=== PATIENT | female | born 1980 | race African-American/Black ===

== ENCOUNTER 2018-02-25 13:10 | Emergency (ER) | payer SELFPAY ==
[~2018-02-25] VITALS: Ht 177.8 cm; Wt 107.5 kg
--- NOTE | 2018-02-25 13:47 | Emergency Room Report ---
History of Present Illness General Chief Complaint: Upper Respiratory Illness Present Illness HPI 37-year-old female presents emergency department complaining of 7 out of 10 in severity painful cough 2 weeks. Patient denies production of sputum she denies fevers she reports intermittent chills she denies ill contacts or recent travel. Patient denies being a current smoker she reports she quit smoking 5 years ago. Patient denies history of asthma or COPD. OTC cough medications have been ineffective. Denies sore throat, ear pain, high fevers, lethargy, neck pain/stiffness, irritability, photophobia dehydration, N/V/D. Denies Cp, Palpitations, LOC, AMS, seizures, paresthesias, or changes in Hearing or vision , no Sudden severe LEI. Denies hx of smoking, asthma or COPD. Allergies: Coded Allergies: No Known Allergies (Unverified , 02/25/18) Patient History Past Medical History: see triage record Past Surgical History: none Pertinent Family History: none Social History: Reports: smoking Last Menstrual Period: Feb 2018 Now: No Reviewed Nursing Documentation: PMH: Agreed; PSxH: Agreed Nursing Documentation-PMH Past Medical History: No History, Except For Hx Hypertension: Yes Review of Systems All Other Systems: negative except mentioned in HPI Physical Exam Vital Signs Date Time Temp Pulse Resp B/P (MAP) Pulse Ox O2 Delivery O2 Flow Rate FiO2 02/25/18 13:24 99.1 84 16 136/84 95 Room Air Sp02 EP Interpretation: reviewed, normal General Appearance: no apparent distress, alert, GCS 15, non-toxic Head: normocephalic, atraumatic Eyes: bilateral eye normal inspection, bilateral eye PERRL ENT: hearing grossly normal, normal pharynx, normal voice Neck: full range of motion, no meningismus, no bony tend Respiratory: chest non-tender, lungs clear, no rhonchi, speaking full sentences , wheezing - expiratory wheezes Cardiovascular #1: regular rate, rhythm, no edema, normal capillary refill Musculoskeletal: back normal, gait/station normal, normal range of motion, non- tender Neurologic: alert, oriented x3, responsive, motor strength/tone normal, sensory intact, normal gait, speech normal, grossly normal Psychiatric: judgement/insight normal Skin: normal color, no rash, warm/dry, well hydrated Lymphatic: no adenopathy Medical Decision Making PA Attestation Dr. jaramillo is my supervising Physician whom patient management has been discussed with. Diagnostic Impression: Primary Impression: Bronchitis ER Course 37-year-old female presents emergency department complaining of 7 out of 10 in severity painful cough 2 weeks. Patient denies production of sputum she denies fevers she reports intermittent chills she denies ill contacts or recent travel. Patient denies being a current smoker she reports she quit smoking 5 years ago. Patient denies history of asthma or COPD. OTC cough medications have been ineffective. Denies sore throat, ear pain, high fevers, lethargy, neck pain/stiffness, irritability, photophobia dehydration, N/V/D. Denies Cp, Palpitations, LOC, AMS, seizures, paresthesias, or changes in Hearing or vision , no Sudden severe LEI. Denies hx of smoking, asthma or COPD. Ddx considered but are not limited to URI, pneumonia, PE, strep pharyngitis, meningitis. Vital signs: Pt.is afebrile VS are WNL H&PE are most consistent with bronchitis ORDERS: -CXR: hazy appearance...but no effusion , infliltrate, or atelectasis ED INTERVENTIONS: -Albuterol HHN -Prednisone PO DISCHARGE: At this time pt. is stable for d/c to home. Will provide printed patient care instructions, and any necessary prescriptions. Care plan and follow up instructions have been discussed with the patient prior to discharge. Chest X-Ray Diagnostic Results Chest X-Ray Diagnostic Results : Chest X-Ray Ordered: Yes # of Views/Limited/Complete: 1 View Indication: Chest Pain EP Interpretation: Yes PA Xray: by supervising MD, and agrees with findings. Interpretation: no consolidation, no effusion, no pneumothorax, no acute cardiopulmonary disease Impression: No acute disease Electronically Signed by: Shayna Gracia PA-C Last Vital Signs Date Time Temp Pulse Resp B/P (MAP) Pulse Ox O2 Delivery O2 Flow Rate FiO2 02/25/18 13:33 84 16 Room Air 02/25/18 13:24 99.1 136/84 95 Disposition: HOME, SELF-CARE Condition: Stable Scripts Prednisone* (PREDNISONE*) 20 Mg Tablet 40 MG ORAL DAILY for 5 Days, #10 TAB Prov: Shayna Garcia 02/25/18 Albuterol Sulfate* (ALBUTEROL SULFATE MDI*) 8.5 Gm Hfa.aer.ad 2 PUFF INH Q4H, #1 INH 0 Refills Prov: Shayna Garcia 02/25/18 Benzonatate* (TESSALON PERLE*) 100 Mg Capsule 100 MG ORAL THREE TIMES A DAY for 10 Days, #30 PERLE Prov: Shayna Garcia 02/25/18 Codeine/Promethazine Hcl* (PROMETHAZINE-CODEINE SYRUP*) 118 Ml Syrup 5 ML ORAL Q6H PRN for For Cough, #120 ML 0 Refills Prov: Shayna Garcia 02/25/18 Patient Instructions: Acute Bronchitis Additional Instructions: Take medications as directed. Follow up with a Primary Care Provider in 3-5 days, even if your symptoms have resolved. --Please review list of primary care clinics, if you do not already have a primary care provider Return sooner to ED if new symptoms occur, or current symptoms become worse. Do not drink alcohol, drive, or operate heavy machinery while taking Cough Syrup as this may cause drowsiness. - Please note that this Emergency Department Report was dictated using [employer] ride operator technology software, occasionally this can lead to erroneous entry secondary to interpretation by the dictation equipment. Shayna Garcia Feb 25, 2018 13:47
[2018-02-25 13:58] VITALS: BP 141/79
[2018-02-25] MEDS ORDERED: Albuterol ud Inhalation HHN ONE (14:00)
[2018-02-25] MEDS ORDERED: ALBUTEROL SULF8.5 GM INH (14:44)
[2018-02-25] MEDS ORDERED: PROMETHAZINE-C118 M1 ORAL (14:44)
[2018-02-25] MEDS ORDERED: TESSALON PERLE100 MG ORAL (14:44)
[2018-02-25] MEDS ORDERED: PREDNISONE20 MG ORAL (14:44)
[2018-02-25 14:50] VITALS: BP 141/79
--- NOTE | 2018-02-25 17:36 | Diagnostic Imaging Report ---
Indication: Chest pain Technique: One view of the chest Comparison: none Findings: Inspiration is suboptimal. There is borderline interstitial congestion. No focal airspace consolidation. No effusions Impression: Borderline interstitial congestion. Correlate with clinical findings
[2018-03-01] MEDS ORDERED: ZITHROMAX250 MG ORAL ×2 (13:21→15:52)
== END 2018-02-25 14:45 | disposition home or self-care (01) ==
LOC: EMR 13:59
DX: J40 Bronchitis, not specified as acute or chronic (principal); I10 Essential (primary) hypertension
CPT/HCPCS: 71045; 94640; 99283; J7512

== ENCOUNTER 2018-03-05 16:41 | Emergency (ER) | payer SELFPAY ==
[~2018-03-05] VITALS: Ht 177.8 cm; Wt 111.1 kg
[~2018-03-05 16:41] MED LIST: ALBUTEROL SULF8.5 GM INH; PREDNISONE20 MG ORAL; PROMETHAZINE-C118 M1 ORAL; TESSALON PERLE100 MG ORAL; ZITHROMAX250 MG ORAL
[2018-03-05] MEDS ORDERED: FERROUS FUMARAT89 MG PO (17:15)
[2018-03-05] MEDS ORDERED: Ipratropium 0.02% Inh Soln 2.5ml UD HHN ONE (17:15)
[2018-03-05] MEDS ORDERED: Albuterol ud Inhalation HHN ONE (17:15)
[2018-03-05] MEDS ORDERED: Tylenol #3 tab (300mg/30mg) ORAL ONE (17:15)
[2018-03-05] MEDS ORDERED: AMLODIPINE BESYL5 MG ORAL (17:15)
[2018-03-05 17:28] VITALS: BP 125/65
--- NOTE | 2018-03-05 17:45 | Diagnostic Imaging Report ---
Indication: Shortness of breath Technique: XRAY Chest 1v Comparison: 02/25/2018 Findings: Heart size and mediastinal contours are within normal limits for AP technique. There is no focal consolidation, pneumothorax or pleural effusion. Osseous structures demonstrate no acute abnormality. Impression: No radiographic evidence of acute cardiopulmonary disease.
[2018-03-05 18:26] LABS: BASOPHILS % (AUTO) 1.2 % (0.0-2.0); EOSINOPHILS % (AUTO) 0.8 % (0.0-3.0); HEMATOCRIT 41.8 % (37.0-47.0); HEMOGLOBIN 13.9 G/DL (12.0-16.0); LYMPHOCYTES % (AUTO) 27.9 % (20.0-45.0); MEAN CORPUSCULAR VOLUME 83 FL (80-99); MONOCYTES % (AUTO) 4.7 % (1.0-10.0); NEUTROPHILS % (AUTO) 65.3 % (45.0-75.0); PLATELET COUNT 399 K/UL (150-450); RED BLOOD COUNT 5.01 M/UL (4.20-5.40); RED CELL DISTRIBUTION WIDTH 14.8 % (11.6-14.8)
[2018-03-05 18:30] LABS: APPEARANCE,URINE CLEAR; BILIRUBIN, URINE NEGATIVE (NEGATIVE); GLUCOSE, URINE (UA) NEGATIVE (NEGATIVE); KETONES,URINE NEGATIVE (NEGATIVE); LEUKOCYTE ESTERASE ,URINE NEGATIVE (NEGATIVE); NITRITE,URINE NEGATIVE (NEGATIVE); PH,URINE 6 (4.5-8.0); PROTEIN,URINE NEGATIVE (NEGATIVE); UROBILINOGEN,URINE NORMAL MG/DL (0.0-1.0)
[2018-03-05 18:32] LABS: COLOR,URINE YELLOW
[2018-03-05 18:32] LABS: ANION GAP 9 mmol/L (5-15); BLOOD UREA NITROGEN 15 mg/dL (7-18); CALCIUM 8.7 MG/DL (8.5-10.1); CARBON DIOXIDE 28 MMOL/L (21-32); CHLORIDE 101 MMOL/L (98-107); CREATININE 1.1 MG/DL (0.55-1.30); POTASSIUM 3.9 MMOL/L (3.5-5.1); SODIUM 138 MMOL/L (136-145)
[2018-03-05] MEDS ORDERED: Sodium Chloride 500ML 500 ML IV ONE (18:45)
[2018-03-05 18:47] LABS: ALANINE AMINOTRANSFERASE 21 U/L (12-78); ALBUMIN 3.5 G/DL (3.4-5.0); ALBUMIN/GLOBULIN RATIO 0.8 (1.0-2.7); ALKALINE PHOSPHATASE 83 U/L (46-116); ASPARTATE AMINO TRANSFERASE 14 U/L (15-37); BILIRUBIN,TOTAL 0.3 MG/DL (0.2-1.0); CKMB 0.6 NG/ML (0.0-3.6); CREATINE KINASE 50 U/L (26-308)
[2018-03-05] MEDS ORDERED: PREDNISONE20 MG ORAL (19:19)
[2018-03-05] MEDS ORDERED: TYLENOL EXTRA500 MG ORAL (19:19)
[2018-03-05] MEDS ORDERED: PROMETHAZINE-C118 M1 ORAL (19:19)
[2018-03-05] MEDS ORDERED: ALBUTEROL SULF8.5 GM INH (19:19)
[2018-03-05] MEDS ORDERED: ROBAXIN-750750 MG PO (19:19)
[2018-03-05] MEDS ORDERED: AMOXICILLIN500 MG ORAL (19:23)
[2018-03-05 19:44] VITALS: BP 117/70
[2018-03-05 19:46] VITALS: BP 117/70
--- NOTE | 2018-03-05 23:55 | Emergency Room Report ---
History of Present Illness General Chief Complaint: Chest Pain Source: Patient, Medical Record Present Illness HPI 37-year-old female presents ED for evaluation. Complaining of shortness of breath and chest tightness and cough. Was seen here approximately one week ago for similar symptoms. Was discharged on cough medication and inhaler. Later on added antibiotics after speaking to PA. Patient states cough persists. Also complaining of chest tightness and soreness. 8 out of 10, dull, nonradiating. Cough is dry. Denies fevers or chills. Denies sick contacts or recent travel. Denies smoking. No other aggravating relieving factors. Denies any other associated symptoms Allergies: Coded Allergies: SULFA (SULFONAMIDE ANTIBIOTICS) (Verified Allergy, Unknown, 03/05/18) Patient History Past Medical History: HTN Past Surgical History: none Pertinent Family History: none Social History: Denies: smoking, alcohol use, drug use Last Menstrual Period: Feb 2018 Now: No Immunizations: UTD Reviewed Nursing Documentation: PMH: Agreed; PSxH: Agreed Nursing Documentation-PMH Past Medical History: No History, Except For Hx Hypertension: Yes Review of Systems All Other Systems: negative except mentioned in HPI Physical Exam Vital Signs Date Time Temp Pulse Resp B/P (MAP) Pulse Ox O2 Delivery O2 Flow Rate FiO2 03/05/18 16:50 98.2 118 16 142/82 98 Room Air 03/05/18 17:25 21 Sp02 EP Interpretation: reviewed, normal General Appearance: no apparent distress, alert, GCS 15, non-toxic Head: normocephalic, atraumatic Eyes: bilateral eye normal inspection, bilateral eye PERRL ENT: hearing grossly normal, normal pharynx, no angioedema, normal voice Neck: full range of motion, supple/symm/no masses Respiratory: chest non-tender, lungs clear, normal breath sounds, speaking full sentences Cardiovascular #1: regular rate, rhythm, no edema Cardiovascular #2: 2+ carotid (R), 2+ carotid (L), 2+ radial (R), 2+ radial (L) , 2+ dorsalis pedis (R), 2+ dorsalis pedis (L) Gastrointestinal: normal bowel sounds, non tender, soft, non-distended, no guarding, no rebound Rectal: deferred Genitourinary: normal inspection, no CVA tenderness Musculoskeletal: back normal, gait/station normal, normal range of motion, non- tender Neurologic: alert, oriented x3, responsive, motor strength/tone normal, sensory intact, speech normal Psychiatric: judgement/insight normal, memory normal, mood/affect normal, no suicidal/homicidal ideation Reflexes: 3+ bicep (R), 3+ bicep (L), 3+ tricep (R), 3+ tricep (L), 3+ knee (R) , 3+ knee (L) Skin: normal color, no rash, warm/dry, well hydrated Lymphatic: no adenopathy Medical Decision Making Diagnostic Impression: Primary Impression: Chest wall pain Additional Impression: Bronchitis ER Course Hospital Course 37 yo F presents with chest wall pain, chest tightness, cough Differential diagnoses include: URI, bronchitis, asthma/COPD, pneumonia Clinical course Patient placed on stretcher. Initial history and physical I ordered labs, chest x-ray, pain meds Chest x-ray shows no acute infiltrate on reassessment patient continues to note chest tightness, states she "can't catch her breath" I ordered labs, EKG, IV fluids Labs reviewed-no leukocytosis, hemoglobin/hematocrit stable, electrolytes okay, trop negative, ddimer ok EKG - sinus tachycardia, no acute ischemic changes interpreted by me Discussed findings with patient and family. Symptoms are likely related to chest wall pain due to persistent coughing. Low suspicion for PE or ischemic cardiac event. Safe for discharge or close outpatient follow-up Diagnosis - chest wall pain, bronchitis Stable and discharged home with prescriptions for albuterol, prednisone, tylenol , robaxin, promethazine/codeine. Instructed to followup with PMD. Return to ED if symptoms recur or worsen Labs Test 03/05/18 17:11 03/05/18 18:06 Urine Color Yellow Urine Appearance Clear Urine pH 6 (4.5-8.0) Urine Specific [place] 1.015 (1.005-1.035) Urine Protein Negative (NEGATIVE) Urine Glucose (UA) Negative (NEGATIVE) Urine Ketones Negative (NEGATIVE) Urine Blood 1+ (NEGATIVE) Urine Nitrite Negative (NEGATIVE) Urine Bilirubin Negative (NEGATIVE) Urine Urobilinogen Normal MG/DL (0.0-1.0) Urine Leukocyte Esterase Negative (NEGATIVE) Urine RBC 0-2 /HPF (0 - 2) Urine WBC 0 /HPF (0 - 2) Urine Squamous Epithelial Cells Few /LPF (NONE/OCC) Urine Bacteria Occasional /HPF (NONE) Urine HCG, Qualitative Negative (NEGATIVE) White Blood Count 13.0 K/UL (4.8-10.8) Red Blood Count 5.01 M/UL (4.20-5.40) Hemoglobin 13.9 G/DL (12.0-16.0) Hematocrit 41.8 % (37.0-47.0) Mean Corpuscular Volume 83 FL (80-99) Mean Corpuscular Hemoglobin 27.8 PG (27.0-31.0) Mean Corpuscular Hemoglobin Concent 33.3 G/DL (32.0-36.0) Red Cell Distribution Width 14.8 % (11.6-14.8) Platelet Count 399 K/UL (150-450) Mean Platelet Volume 5.0 FL (6.5-10.1) Neutrophils (%) (Auto) 65.3 % (45.0-75.0) Lymphocytes (%) (Auto) 27.9 % (20.0-45.0) Monocytes (%) (Auto) 4.7 % (1.0-10.0) Eosinophils (%) (Auto) 0.8 % (0.0-3.0) Basophils (%) (Auto) 1.2 % (0.0-2.0) D-Dimer 0.28 mg/L FEU (0.00-0.49) Sodium Level 138 MMOL/L (136-145) Potassium Level 3.9 MMOL/L (3.5-5.1) Chloride Level 101 MMOL/L (98-107) Carbon Dioxide Level 28 MMOL/L (21-32) Anion Gap 9 mmol/L (5-15) Blood Urea Nitrogen 15 mg/dL (7-18) Creatinine 1.1 MG/DL (0.55-1.30) Estimat Glomerular Filtration Rate > 60 mL/min (>60) Glucose Level 178 MG/DL (74-106) Calcium Level 8.7 MG/DL (8.5-10.1) Total Bilirubin 0.3 MG/DL (0.2-1.0) Aspartate Amino Transf (AST/SGOT) 14 U/L (15-37) Alanine Aminotransferase (ALT/SGPT) 21 U/L (12-78) Alkaline Phosphatase 83 U/L (46-116) Total Creatine Kinase 50 U/L (26-308) Creatine Kinase MB 0.6 NG/ML (0.0-3.6) Creatine Kinase MB Relative Index 1.2 Troponin I 0.012 ng/mL (0.000-0.056) Pro-B-Type Natriuretic Peptide 6 pg/mL (0-125) Total Protein 7.7 G/DL (6.4-8.2) Albumin 3.5 G/DL (3.4-5.0) Globulin 4.2 g/dL Albumin/Globulin Ratio 0.8 (1.0-2.7) EKG Diagnostic Results Rate: tachycardiac Rhythm: NSR ST Segments: no acute changes ASA given to the pt in ED: No Rhythm Strip Diag. Results EP Interpretation: yes Rhythm: NSR, no PVC's, no ectopy Chest X-Ray Diagnostic Results Chest X-Ray Diagnostic Results : Chest X-Ray Ordered: Yes # of Views/Limited/Complete: 1 View Indication: Shortness of Breath EP Interpretation: Yes Interpretation: no consolidation, no effusion, no pneumothorax, no acute cardiopulmonary disease Impression: No acute disease Electronically Signed by: Electronically signed by Randy Mei MD Last Vital Signs Date Time Temp Pulse Resp B/P (MAP) Pulse Ox O2 Delivery O2 Flow Rate FiO2 03/05/18 19:46 97.7 94 18 117/70 99 Room Air 21 Status: improved Disposition: HOME, SELF-CARE Condition: Stable Scripts Amoxicillin* (AMOXIL*) 500 Mg Capsule 500 MG ORAL THREE TIMES A DAY, #21 CAP Prov: Randy Mei MD 03/05/18 Albuterol Sulfate* (ALBUTEROL SULFATE MDI*) 8.5 Gm Hfa.aer.ad 2 PUFF INH Q6H, #1 EA 0 Refills Prov: Randy Mei MD 03/05/18 Prednisone* (PREDNISONE*) 20 Mg Tablet 40 MG ORAL DAILY, #10 TAB Prov: Randy Mei MD 03/05/18 Methocarbamol* (ROBAXIN-750*) 750 Mg Tablet 750 MG PO TID, #21 TAB 0 Refills Prov: Randy Mei MD 03/05/18 Acetaminophen* (TYLENOL EXTRA STRENGTH*) 500 Mg Tablet 500 MG ORAL Q8H PRN for Prn Headache/Temp > 101, #30 TAB 0 Refills Prov: Randy Mei MD 03/05/18 Codeine/Promethazine Hcl* (PROMETHAZINE-CODEINE SYRUP*) 118 Ml Syrup 5 ML ORAL Q6H PRN for For Cough, #120 ML 0 Refills Prov: Randy Mei MD 03/05/18 Referrals: NOT CHOSEN IPA/,REFERRING (PCP) [facility] Patient Instructions: Chest Wall Pain, [id number], Acute Bronchitis, Easy-to- Read Randy Mei MD Mar 05, 2018 23:55
== END 2018-03-05 19:47 | disposition home or self-care (01) ==
LOC: EMR 17:06
DX: R07.89 Other chest pain (principal); J40 Bronchitis, not specified as acute or chronic; R00.0 Tachycardia, unspecified; R06.02 Shortness of breath; I10 Essential (primary) hypertension; Z88.2 Allergy status to sulfonamides
CPT/HCPCS: 36415; 71045; 80053; 81003; 81025; 82550; 82553; 83880; 84484; 85025; 85379; 93005; 94640; 94664; 99284; J7512

== ENCOUNTER 2018-04-08 11:40 | Emergency (ER) | payer MEDICAID ==
[~2018-04-08] VITALS: Ht 177.8 cm; Wt 108.9 kg
[~2018-04-08 11:40] MED LIST changes: +AMLODIPINE BESYL5 MG ORAL; +AMOXICILLIN500 MG ORAL; +FERROUS FUMARAT89 MG PO; +ROBAXIN-750750 MG PO; +TYLENOL EXTRA500 MG ORAL
[2018-04-08] MEDS ORDERED: Ipratropium 0.02% Inh Soln 2.5ml UD HHN ONE (12:30)
[2018-04-08] MEDS ORDERED: Albuterol ud Inhalation HHN ONE (12:30)
[2018-04-08] MEDS ORDERED: PROMETHAZINE-C118 M1 ORAL (13:14)
[2018-04-08] MEDS ORDERED: LEVAQUIN750 MG ORAL (13:14)
[2018-04-08] MEDS ORDERED: ROBAXIN-750750 MG PO (13:14)
[2018-04-08 13:32] VITALS: BP 174/94
[2018-04-08] MEDS ORDERED: TESSALON PERLE100 MG ORAL (13:35)
[2018-04-08 13:38] VITALS: BP 175/92
--- NOTE | 2018-04-08 14:16 | Diagnostic Imaging Report ---
Indication: Reason For Exam: SOB Technique: One view of the chest Comparison: Findings: Lungs and pleural spaces are clear. Heart size is normal Impression: No acute process
--- NOTE | 2018-04-09 07:38 | Emergency Room Report ---
History of Present Illness General Chief Complaint: Upper Respiratory Illness Source: Patient, Medical Record Present Illness HPI 37-year-old female presents ED for evaluation. Complaining of cough. States it has been persisting for 3 months now. Has been here twice for similar presentation. States on last visit she was prescribed some medications that helped however symptoms are returning. Cough is productive of yellowish phlegm. Denies fevers or chills. Notes soreness in chest with coughing. Dull , 7 out of 10, nonradiating. Denies sick contacts or recent travel. No other aggravating relieving factors. Denies any other associated symptoms Allergies: Coded Allergies: SULFA (SULFONAMIDE ANTIBIOTICS) (Verified Allergy, Unknown, 03/05/18) Patient History Past Medical History: HTN Past Surgical History: none Pertinent Family History: none Social History: Denies: smoking, alcohol use, drug use Last Menstrual Period: 03/19/18 Now: No Reviewed Nursing Documentation: PMH: Agreed; PSxH: Agreed Nursing Documentation-PMH Past Medical History: No History, Except For Hx Cardiac Problems: No - Anemia Hx Hypertension: Yes Review of Systems All Other Systems: negative except mentioned in HPI Physical Exam Vital Signs Date Time Temp Pulse Resp B/P (MAP) Pulse Ox O2 Delivery O2 Flow Rate FiO2 04/08/18 11:43 98.2 101 18 179/96 98 04/08/18 11:50 Room Air 04/08/18 12:31 21 Sp02 EP Interpretation: reviewed, normal General Appearance: no apparent distress, alert, GCS 15, non-toxic Head: normocephalic, atraumatic Eyes: bilateral eye normal inspection, bilateral eye PERRL ENT: hearing grossly normal, normal pharynx, no angioedema, normal voice Neck: full range of motion, supple/symm/no masses Respiratory: chest non-tender, lungs clear, normal breath sounds, speaking full sentences Cardiovascular #1: regular rate, rhythm, no edema Cardiovascular #2: 2+ carotid (R), 2+ carotid (L), 2+ radial (R), 2+ radial (L) , 2+ dorsalis pedis (R), 2+ dorsalis pedis (L) Gastrointestinal: normal bowel sounds, non tender, soft, non-distended, no guarding, no rebound Rectal: deferred Genitourinary: normal inspection, no CVA tenderness Musculoskeletal: back normal, gait/station normal, normal range of motion, non- tender Neurologic: alert, oriented x3, responsive, motor strength/tone normal, sensory intact, speech normal Psychiatric: judgement/insight normal, memory normal, mood/affect normal, no suicidal/homicidal ideation Reflexes: 3+ bicep (R), 3+ bicep (L), 3+ tricep (R), 3+ tricep (L), 3+ knee (R) , 3+ knee (L) Skin: normal color, no rash, warm/dry, well hydrated Lymphatic: no adenopathy Medical Decision Making Diagnostic Impression: Primary Impression: Atypical pneumonia ER Course Hospital Course 37-year-old female presents ED complaining of bodyaches and cough x3 months Differential diagnoses include: URI, pharyngitis, otitis media, asthma Clinical course Patient placed on stretcher. After initial history, physical exam reveals a female in no acute distress. Bilateral TM unremarkable. No pharyngeal erythema. No tonsillar exudates. No lymphadenopathy. lungs clear. abdomen soft. I ordered nebs, CXR CXR - no consolidation or definitve infiltrate I reviewed EMR. I saw patient on last visit. The patient's symptoms were not improving and she was feeling "short of breath" I did workup which included troponins and d-dimer. All of which was negative. I saw no reason to repeat workup at this time. Patient states that she has a PMD but is looking for another. We will provide referrals. Will prescribe another round of antibiotics, Robaxin, cough medication and Tessalon Perles. Diagnosis - atypical pneumonia Stable and discharged home with Rx Levaquin, robaxin, promethazine/codeine, tessalon perles. Instructed to followup with PMD. Return to ED if symptoms recur or worsen Chest X-Ray Diagnostic Results Chest X-Ray Diagnostic Results : Chest X-Ray Ordered: Yes # of Views/Limited/Complete: 1 View Indication: Other - cough EP Interpretation: Yes Interpretation: no consolidation, no effusion, no pneumothorax, no acute cardiopulmonary disease Impression: No acute disease Electronically Signed by: Electronically signed by Randy Mei MD Last Vital Signs Date Time Temp Pulse Resp B/P (MAP) Pulse Ox O2 Delivery O2 Flow Rate FiO2 04/08/18 13:38 98.4 93 19 175/92 100 Room Air 04/08/18 12:43 21 Status: improved Disposition: HOME, SELF-CARE Condition: Stable Scripts Benzonatate* (TESSALON PERLE*) 100 Mg Capsule 100 MG ORAL THREE TIMES A DAY for 10 Days, #30 PERLE Prov: Randy Mei MD 04/08/18 Methocarbamol* (ROBAXIN-750*) 750 Mg Tablet 750 MG PO TID, #21 TAB 0 Refills Prov: Randy Mei MD 04/08/18 Codeine/Promethazine Hcl* (PROMETHAZINE-CODEINE SYRUP*) 118 Ml Syrup 5 ML ORAL Q6H PRN for For Cough, #118 ML 0 Refills Prov: Randy Mei MD 04/08/18 Levofloxacin* (LEVAQUIN*) 750 Mg Tablet 750 MG ORAL DAILY for 5 Days, TAB Prov: Randy Mei MD 04/08/18 Referrals: Hi Haro MD Patient Instructions: Community-Acquired Pneumonia, Adult, [id number] Randy Mei MD Apr 09, 2018 07:38
== END 2018-04-08 13:37 | disposition home or self-care (01) ==
LOC: EMR 12:17
DX: J18.9 Pneumonia, unspecified organism (principal); I10 Essential (primary) hypertension; Z88.2 Allergy status to sulfonamides
CPT/HCPCS: 71045; 94640; 94664; 99284

== ENCOUNTER 2019-04-20 10:11 | Emergency (ER) | payer BC, MEDICAID ==
[~2019-04-20] VITALS: Ht 177.8 cm; Wt 106.6 kg
[~2019-04-20 10:11] MED LIST changes: +LEVAQUIN750 MG ORAL
--- NOTE | 2019-04-20 10:32 | NUR ---
ED Nurse Note: Pt walked into ED w/ c/o cough, congestion, sore throat, sputum yellow x 3 weeks. Pt states she's had trouble sleeping bc of coughing up sputum. Pt states she has 10/10 pain when coughing, in upper mid chest and upper back. Pt is alert&ox4 and ambulatory and set up on monitor. MD at bedside. Bilat lungs clear to ausc.
[2019-04-20 10:42] VITALS: BP 135/60
--- NOTE | 2019-04-20 10:42 | Emergency Room Report ---
History of Present Illness General Chief Complaint: Flu Like Symptoms Source: Patient Present Illness HPI 38-year-old female presents ED for evaluation. Complaining of cough, body aches x3 weeks. Was seen by PMD and was prescribed antibiotics but states symptoms did not resolve. States her cough is worse at night. Productive with yellowish phlegm. Denies fevers or chills. Notes pain in her chest worse with coughing, dull, 6 out of 10, nonradiating. Denies sick contacts or recent travel. No other aggravating relieving factors. Denies any other associated symptoms Allergies: Coded Allergies: SULFA (SULFONAMIDE ANTIBIOTICS) (Verified Allergy, Unknown, 03/05/18) Patient History Past Medical History: HTN Past Surgical History: none Pertinent Family History: none Social History: Denies: smoking, alcohol use, drug use Last Menstrual Period: 04/09/2109 Now: No Immunizations: UTD Reviewed Nursing Documentation: PMH: Agreed; PSxH: Agreed Nursing Documentation-PMH Hx Cardiac Problems: No - Anemia Hx Hypertension: Yes Review of Systems All Other Systems: negative except mentioned in HPI Physical Exam Vital Signs Date Time Temp Pulse Resp B/P (MAP) Pulse Ox O2 Delivery O2 Flow Rate FiO2 04/20/19 10:12 98.2 84 18 134/67 (89) 97 Room Air Sp02 EP Interpretation: reviewed, normal General Appearance: no apparent distress, alert, GCS 15, non-toxic Head: normocephalic, atraumatic Eyes: bilateral eye normal inspection, bilateral eye PERRL ENT: hearing grossly normal, normal pharynx, no angioedema, normal voice Neck: full range of motion, supple/symm/no masses Respiratory: chest non-tender, lungs clear, normal breath sounds, speaking full sentences Cardiovascular #1: regular rate, rhythm, no edema Cardiovascular #2: 2+ carotid (R), 2+ carotid (L), 2+ radial (R), 2+ radial (L) , 2+ dorsalis pedis (R), 2+ dorsalis pedis (L) Gastrointestinal: normal bowel sounds, non tender, soft, non-distended, no guarding, no rebound Rectal: deferred Genitourinary: normal inspection, no CVA tenderness Musculoskeletal: back normal, normal range of motion, gait/station normal, non- tender Neurologic: alert, motor strength/tone normal, oriented x3, sensory intact, responsive, speech normal Psychiatric: judgement/insight normal, memory normal, mood/affect normal, no suicidal/homicidal ideation Reflexes: 3+ bicep (R), 3+ bicep (L), 3+ tricep (R), 3+ tricep (L), 3+ knee (R) , 3+ knee (L) Skin: no rash Lymphatic: no adenopathy Medical Decision Making Diagnostic Impression: Primary Impression: Atypical pneumonia ER Course Hospital Course 38-year-old female presents with persistent cough, wheezing Differential diagnoses include: URI, bronchitis, asthma/COPD, pneumonia Clinical course Patient placed on stretcher. After initial history and physical I ordered CXR, nebulizer treatment. X-ray shows no focal consolidation or other acute process. After breathing treatments patient states she feels better. States she was prescribed an inhaler previously but did not use it. Will add Levaquin. Encourage patient use her inhaler. I will prescribe cough medication. Safe for discharge for close outpatient follow-up. States she has a PMD Diagnosis - atypical pneumonia Stable and discharged home with prescriptions for Rx levaquin, promethazine/ codeine. Instructed to followup with PMD. Return to ED if symptoms recur or worsen Chest X-Ray Diagnostic Results Chest X-Ray Diagnostic Results : Chest X-Ray Ordered: Yes # of Views/Limited/Complete: 1 View Indication: Other - cough EP Interpretation: Yes Interpretation: no consolidation, no effusion, no pneumothorax, no acute cardiopulmonary disease Impression: No acute disease Electronically Signed by: Electronically signed by Randy Mei MD Last Vital Signs Date Time Temp Pulse Resp B/P (MAP) Pulse Ox O2 Delivery O2 Flow Rate FiO2 04/20/19 10:12 98.2 84 18 134/67 (89) 97 Room Air Status: improved Disposition: HOME, SELF-CARE Condition: Stable Scripts Codeine/Promethazine Hcl* (PROMETHAZINE-CODEINE SYRUP*) 118 Ml Syrup 5 ML ORAL Q6H PRN for For Cough, #118 ML 0 Refills Prov: Randy Mei MD 04/20/19 Levofloxacin* (LEVAQUIN*) 750 Mg Tablet 750 MG ORAL DAILY for 5 Days, #5 TAB Prov: Randy Mei MD 04/20/19 Randy Mei MD Apr 20, 2019 10:42
[2019-04-20] MEDS ORDERED: Albuterol/Ipratropium 3ml neb HHN ONE (10:45)
--- NOTE | 2019-04-20 11:06 | Diagnostic Imaging Report ---
EXAM: XR Chest, 1 View CLINICAL HISTORY: COUGH TECHNIQUE: Frontal view of the chest. COMPARISON: Chest x-rays dated 04/08/18 FINDINGS: Lungs: Unremarkable. The lungs appear clear. No focal consolidation. Pleural space: Unremarkable. The costophrenic angles are sharp. No visible pneumothorax. Heart: Unremarkable. No cardiomegaly. Mediastinum: Unremarkable. Bones/joints: Unremarkable. Tubes, lines and devices: Telemetry leads overlie the thorax. IMPRESSION: No acute findings.
[2019-04-20] MEDS ORDERED: PROMETHAZINE-C118 M1 ORAL (11:07)
[2019-04-20] MEDS ORDERED: LEVAQUIN750 MG ORAL (11:07)
[2019-04-20 11:15] VITALS: BP 130/65
--- NOTE | 2019-04-20 11:16 | NUR ---
ER DISCHARGE NOTE: Patient is cleared to be discharged per ERMD, pt is aox4, on room air, with stable vital signs. pt was given dc and prescription instructions, pt was able to verbalize understanding, pt id band removed. pt is able to ambulate with steady gait. pt took all belongings. Pt educated regarding antibx.
== END 2019-04-20 11:15 | disposition home or self-care (01) ==
LOC: EMR 10:40
DX: J18.9 Pneumonia, unspecified organism (principal); Z88.2 Allergy status to sulfonamides; I10 Essential (primary) hypertension
CPT/HCPCS: 71045; 99284; J7620